=== PATIENT | male | born 1965 | race Caucasian/White ===

== ENCOUNTER 2019-04-22 08:26 | Day surgery (SDC) | payer OTHER ==
[~2019-04-22] VITALS: Ht 157.5 cm; Wt 66.1 kg
[2019-04-22] MEDS ORDERED: BLOOD PRESSURE MED (09:01)
[2019-04-22 09:16] VITALS: Ht 157.5 cm; Wt 66.1 kg
--- NOTE | 2019-04-22 09:42 | PREAC ---
Date/Time of Note Date/Time of Note DATE: 04/22/19 TIME: 09:41 Anesthesia Eval and Record Evaluation Time Pre-Procedure Interview DATE: 04/22/19 TIME: 09:41 Age 53 Sex male NPO: 8 hrs Preoperative diagnosis gerd Planned procedure EGD, colonoscopy Past Medical History Past Medical History: Includes Cardio: HTN GI: GERD Surgery & Anesthesia Issues No known issue Meds Anticoagulation: No Beta [place] within 24 hr: No Reason Beta [place] not given: Pt. not on B-[place] Reported Medications [Blood Pressure Med] No Conflict Check 04/22/19 Meds reviewed: Yes Allergies Coded Allergies: No Known Allergy (Unverified , 04/22/19) Allergies Reviewed: Yes Labs/Studies Labs Reviewed: Reviewed by anesthesiologist test: N/A Pre-procedure Exam Airway: Adequate mouth opening, Adequate thyromental dist Mallampati: Mallampati II Teeth: Normal Lung: Normal Heart: Normal ASA Physical Status ASA physical status: 2 Emergency: None Planned Anesthetic General/MAC: Mask, MAC Pre-operative Attestations Prior to commencing anesthesia and surgery, the patient was re-evaluated, there was verification of: *The patient's identity *The results of appropriate recent lab work and preoperative vital signs *The above evaluation not changing prior to induction *Anesthetic plan, risk benefits, alternative and complications discussed with patient/family; questions answered; patient/family understands, accepts and wishes to proceed. GENNA LEE Apr 22, 2019 09:41
[2019-04-22 09:43] VITALS: BP 125/70; PULSE 57; RESP 18
[2019-04-22] MEDS ORDERED: PROPOFOL 40 ML ONE (09:45)
[2019-04-22] MEDS ORDERED: FENTAnyl 50 MCG/ML VIAL IV PRN (10:00)
[2019-04-22 10:55] VITALS: BP 144/81; PULSE 58; RESP 16
--- NOTE | 2019-04-23 08:17 | PAC ---
Date/Time of Note Date/Time of Note DATE: 04/23/19 TIME: 08:16 Post-Anesthesia Notes Post-Anesthesia Note Last documented vital signs Vital Signs Date Temp Pulse Resp B/P (MAP) Pulse Ox O2 O2 Flow FiO2 Time Delivery Rate 04/22/19 58 16 144/81 98 Room Air 10:55 (102) 04/22/19 97.5 09:43 Activity: WNL Respiratory function: WNL Cardiovascular function: WNL Mental status: Baseline Pain reasonably controlled: Yes Hydration appropriate: Yes Nausea/Vomiting absent: Yes GENNA LEE Apr 23, 2019 08:17
== END 2019-04-22 13:02 | disposition home or self-care (01) ==
LOC: GIL 08:26
PROVIDERS: ATTEND Internal Medicine Gastroenterology
DX: Z12.11 Encounter for screening for malignant neoplasm of colon (principal); K64.4 Residual hemorrhoidal skin tags; K29.50 Unspecified chronic gastritis without bleeding; I10 Essential (primary) hypertension
CPT/HCPCS: 43239; 45378; 88305; 88312; Z7610